=== PATIENT | female | born 1965 ===

== ENCOUNTER 2017-05-20 09:16 | Emergency (ER) | payer OTHER ==
[~2017-05-20] VITALS: Ht 160 cm; Wt 58.5 kg
[2017-05-20] MEDS ORDERED: COZAAR100 MG (09:42)
[2017-05-20] MEDS ORDERED: FORTAMET500 MG (09:42)
== END 2017-05-20 12:38 | disposition home or self-care (01) ==
LOC: ER 09:16
DX: M79.1 Myalgia (principal)

== ENCOUNTER → 2017-05-27 | Emergency (ER) | payer OTHER ==
[~2017-05-27] VITALS: Ht 160 cm; Wt 59.0 kg
[~2017-05-27] MED LIST: COZAAR100 MG; FORTAMET500 MG
== END | disposition home or self-care (01) ==
LOC: ER 10:25
DX: E11.65 Type 2 diabetes mellitus with hyperglycemia (principal)

== ENCOUNTER 2017-06-16 13:17 | Outpatient (CLI) | payer OTHER | END 2017-06-16 13:21 | disposition home or self-care (01) | LOC: RAD 13:17 | DX: M54.40 Lumbago with sciatica, unspecified side (principal) ==

== ENCOUNTER → 2017-06-23 | Emergency (ER) | payer OTHER | END | disposition left against medical advice (07) | LOC: ER 11:59 | DX: Z53.20 Procedure and treatment not carried out because of patient's decision for unspecified reasons (principal) ==

== ENCOUNTER 2017-10-31 09:38 | Emergency (ER) | payer OTHER ==
[~2017-10-31] VITALS: Ht 160 cm; Wt 61.2 kg
== END 2017-10-31 16:55 | disposition home or self-care (01) ==
LOC: ER 09:38
DX: N39.0 Urinary tract infection, site not specified (principal); B34.9 Viral infection, unspecified; E10.9 Type 1 diabetes mellitus without complications

== ENCOUNTER 2018-05-28 08:32 | Emergency (ER) | payer OTHER ==
[~2018-05-28] VITALS: Ht 160 cm; Wt 60.8 kg
[2018-05-28] MEDS ORDERED: DUI500 PO (11:42)
== END 2018-05-28 12:12 ==
LOC: ER 08:32
DX: L60.0 Ingrowing nail (principal); E11.65 Type 2 diabetes mellitus with hyperglycemia

== ENCOUNTER 2018-06-26 15:17 | Emergency (ER) | payer OTHER ==
[~2018-06-26] VITALS: Ht 160 cm; Wt 60.8 kg
[~2018-06-26 15:17] MED LIST changes: +DUI500 PO
== END 2018-06-26 18:50 | disposition home or self-care (01) ==
LOC: ER 15:17
DX: L03.211 Cellulitis of face (principal); L03.213 Periorbital cellulitis

== ENCOUNTER 2018-12-16 13:26 | Emergency (ER) | payer OTHER ==
[~2018-12-16] VITALS: Ht 160 cm; Wt 63.5 kg
== END 2018-12-16 21:27 ==
LOC: ER 13:26
DX: E11.65 Type 2 diabetes mellitus with hyperglycemia (principal); R19.7 Diarrhea, unspecified